=== PATIENT | male | born 1950 | race Caucasian/White ===

== ENCOUNTER 2025-06-11 11:03 | Outpatient (AMB) | payer MEDICARE, SELFPAY ==
--- NOTE | 2025-06-11 11:13 | MHC.OFFVIS ---
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 He had MRI focused US surgery for the right hand tremor in November of 2024. It was very helpful for the right hand tremor. HE is presenting for a follow-up visit for management of tremor, cognitive decline, and seizures. He reports feeling wobbly at times and uses a cane when he goes out. The patient has a history of essential tremor and is right-hand dominant. He underwent an MRI-focused ultrasound procedure for his right side in November of the previous year at [facility], which resulted in significant improvement in his right-hand and head tremors, allowing him to write and dress himself. He is now being contacted for a follow-up to consider the procedure for his left, non-dominant hand, where tremor persists. The patient has a history of cognitive decline and receives donepezil. He is able to perform activities of daily living such as dressing and showering. His reports he has good and bad days with his memory. There is a history of seizure-like episodes, with the last one occurring in November when he fell, hit his head, and vomited. He had a prior episode last . Past medical history is notable for a vascular stent on the right side, which a recent check showed is functioning well. He is on Pradaxa 150 mg twice daily. He takes primidone once daily at dinnertime. Review of Systems Narrative - Neurological: Reports feeling wobbly and unsteady. - Denies syncope. - Reports persistent tremor in the left hand. - Denies head tremor since the procedure. - Genitourinary: Reports occasional issues with bladder control and nocturia, waking twice nightly to urinate. - Constitutional: Reports sleep is usually good. Physical Exam Neuro Other: Mental Status: Alert and oriented to person, place, and time. Normal attention. Normal spontaneous speech, fluency, and comprehension. Affect is depressed. Mini-mental status score is 21. Cranial Nerves: CN II: Visual ba full to confrontation, visual acuity intact. CN III, IV, : Pupils equal, round, reactive to light and accommodation. Extraocular movements are normal. CN V: Facial sensation is normal. CN VII: Facial movements symmetrical. CN VIII: Hearing intact to bedside conversation is normal. CN IX, X: Palate elevates symmetrically. CN XI: Shoulder shrug and head turn symmetrical. CN XII: Tongue midline without atrophy or fasciculations. Extrapyramidal: Slightly decreased facial expression blinking. He is walking cautiously with a walker. Speech: Normal; no dysarthria or tremor. Assessment & Plan Assessment & Plan (1) Alzheimer dementia: Comment: CT brain WO at [facility] in Apr 2024: Mod atrophy, mod MVD CT brain WO at [facility] in Sep 2023: Mod atrophy suggestive of Alzheimer and MVD MRI brain WO at [facility] in 2019: mild diff atrophy MRI brain WO at [facility] in 2020: somewhat worsening of atrophy and mild MVD. Code(s): G30.9 - Alzheimer's disease, unspecified; F02.80 - Dementia in other diseases classified elsewhere, unspecified severity, without behavioral disturbance, psychotic disturbance, mood disturbance, and anxiety Category: Medical Qualifiers: Alzheimer's disease onset: late onset Dementia behavioral or psychological symptom: with anxiety Dementia severity: mild Qualified Code(s): G30.1 - Alzheimer's disease with late onset; F02.A4 - Dementia in other diseases classified elsewhere, mild, with anxiety (2) Tremor: Code(s): R25.1 - Tremor, unspecified Category: Medical (3) Complex partial seizure disorder: Comment: Amb 48 hr EEG at [facility] in November 2022: left temp sharps Routine EEG at [facility] in 2022: slow Code(s): G40.209 - Localization-related (focal) (partial) symptomatic epilepsy and epileptic syndromes with complex partial seizures, not intractable, without status epilepticus Category: Medical (4) Cerebral microvascular disease: Code(s): I67.89 - Other cerebrovascular disease Category: Medical (5) Migraine without aura: Code(s): G43.009 - Migraine without aura, not intractable, without status migrainosus Category: Medical Qualifiers: Intractability: not intractable Status migrainosus presence: without status migrainosus Qualified Code(s): G43.009 - Migraine without aura, not intractable, without status migrainosus Plan Impression: 1. [id number] multifactorial (Alzheimer +vascular) dementia 2. Complex partial seizure disorder 3. Migraine without aura 4. Benign essential tremor Recommendations: 1. Stop primidone becausae it interacts with the blood thinner, making it less effective 2. COntinue Donepezil at bedtime 3. Start Sertraline 25mg one with breakfast for mood 4. Leave a message in 1-2 weeks about his tremor. If tremor dose not change by stopping Primidone, no further action. If it worsens, I will try Propranalol. 5. Start lamotrigine 25mg one at bedtime 6. Call in a month for refill on lamotrigine, which might be 25mg twice a day I discussed my recommendation against pursuing a second MRI-focused ultrasound surgery for the patient's left-sided tremor, given his age and the fact that it is his non-dominant hand; however, the final decision rests with the family. I explained that a significant drug interaction exists between primidone and Pradaxa, where primidone makes the blood thinner less effective, increasing his risk. Therefore, we will stop primidone. I informed the patient's that because primidone also treats seizures, we must start a new antiseizure medication to prevent falls, especially given his use of a blood thinner. We will begin lamotrigine 25 mg at bedtime. For the tremor, we will observe him for 7-10 days after stopping primidone, and if the tremor worsens, we can start propranolol. For his cognitive decline, we will continue donepezil and add sertraline 25 mg in the morning to improve mood. I explained to his that based on his mental status exam, I cannot provide a letter stating he is competent to sign legal documents, as his cognitive impairment is beyond mild and would not hold up in a court of law. I have recommended a follow-up appointment in 2-3 months to monitor the effects of these significant medication changes. 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
== END 2025-06-11 11:55 | disposition home or self-care (01) ==
LOC: HO.HSM 11:03
PROVIDERS: PCP Internal Medicine; Referring Provider Family Medicine; Visit Provider Psychiatry & Neurology Neurology
DX: G30.1 Alzheimer's disease with late onset (principal); F02.A4 Dementia in other diseases classified elsewhere, mild, with anxiety; R25.1 Tremor, unspecified; G40.209 Localization-related (focal) (partial) symptomatic epilepsy and epileptic syndromes with complex partial seizures, not intractable, without status epilepticus; I67.89 Other cerebrovascular disease; G43.009 Migraine without aura, not intractable, without status migrainosus
CPT/HCPCS: 99215

== ENCOUNTER → 2025-06-11 11:03 | Outpatient (BNVA) | payer MEDICARE, SELFPAY | PROVIDERS: PCP Internal Medicine; Referring Provider Family Medicine; Visit Provider Psychiatry & Neurology Neurology | DX: G30.1 Alzheimer's disease with late onset (principal); F02.A4 Dementia in other diseases classified elsewhere, mild, with anxiety; G43.009 Migraine without aura, not intractable, without status migrainosus; I67.89 Other cerebrovascular disease; R25.1 Tremor, unspecified; G40.209 Localization-related (focal) (partial) symptomatic epilepsy and epileptic syndromes with complex partial seizures, not intractable, without status epilepticus | CPT/HCPCS: 99212 ==